=== PATIENT | male | born 1995 | race African-American/Black ===

== ENCOUNTER 2019-07-18 18:05 | Emergency (ER) | payer SELFPAY ==
[~2019-07-18] VITALS: Ht 177.8 cm; Wt 86.2 kg
[~2019-07-18 18:05] MED LIST: LOMOTIL 0.025 M1 TA1 PO; MOTRIN800 MG PO; VALTREX1 GM PO; ZOFRAN ODT4 MG SL
[2019-07-18 18:07] VITALS: BP 121/77
[2019-07-18] MEDS ORDERED: AMOXICILLIN500 M2 PO (18:21)
== END 2019-07-18 18:48 | disposition home or self-care (01) ==
LOC: ED 18:05
DX: J02.0 Streptococcal pharyngitis (principal)

== ENCOUNTER 2019-07-30 15:31 | Emergency (ER) | payer SELFPAY ==
[~2019-07-30] VITALS: Ht 175.2 cm; Wt 88.5 kg
[~2019-07-30 15:31] MED LIST changes: +AMOXICILLIN500 M2 PO
[2019-07-30 15:34] VITALS: BP 120/71
[2019-07-30 16:43] LABS: HEMOGLOBIN 14.1 g/dl (14.0-18.0); MEAN CELL VOLUME 87.2 fl (80.0-94.0); MEAN CORPUSCULAR HGB CONC 34.4 g/dl (33.0-37.0); PLATELET COUNT AUTOMATED 215 10*3/uL (130-400); RED CELL DISTRI WIDTH 11.8 % (0-14.5); WHITE BLOOD COUNT 19.7 10*3/uL (4.8-10.8)
[2019-07-30 16:49] LABS: BILIRUBIN NEGATIVE (NEGATIVE); BLOOD NEGATIVE (NEGATIVE); CLARITY CLEAR (CLEAR); COLOR YELLOW (YELLOW); GLUCOSE NEGATIVE (NEGATIVE); KETONE NEGATIVE (NEGATIVE); LEUKO ESTERASE NEGATIVE (NEGATIVE); NITRITE NEGATIVE (NEGATIVE); SPECIFIC GRAVITY 1.015 (1.005-1.030); UROBILINOGEN 0.2 E.U./dl (0.2-1.0)
[2019-07-30 17:00] LABS: ALBUMIN 4.1 gm/dl (3.1-4.5); ALKALINE PHOSPHATASE 62 U/L (45-117); BUN 10 mg/dl (7-24); CHLORIDE 104 mmol/L (98-107); CREATININE 1.03 mg/dL (0.70-1.30); POTASSIUM 3.6 mmol/L (3.5-5.1); SGOT/AST 10 IU/L (3-35); SGPT/ALT 25 U/L (12-78); SODIUM 138 mmol/L (136-145); TOTAL PROTEIN 7.4 gm/dL (6.4-8.2)
[2019-07-30 17:01] LABS: PLATELET SUFFICIENCY NORMAL (NORMAL); TOTAL CELLS COUNTED 100 #CELLS
[2019-07-30 17:14] LABS: BACTERIA TRACE; WBC 0-2 wbc/hpf (0-5)
[2019-07-30] MEDS ORDERED: AUGMENTIN 875-875 MG PO (19:00)
== END 2019-07-30 18:20 | disposition home or self-care (01) ==
LOC: ED 15:31
PROVIDERS: Nurse Practitioner Family
DX: J02.9 Acute pharyngitis, unspecified (principal); M54.9 Dorsalgia, unspecified; Z79.2 Long term (current) use of antibiotics

== ENCOUNTER 2024-03-10 19:41 | Emergency (ER) | payer OTHER ==
[~2024-03-10] VITALS: Ht 177.8 cm; Wt 99.8 kg
[~2024-03-10 19:41] MED LIST changes: +AUGMENTIN 875-875 MG PO
[2024-03-10 20:00] VITALS: BP 134/89
[2024-03-10 20:22] LABS: BASO % 0.5 % (0.0-1.0); EOS # 0.3 10*3/uL (0.0-0.4); EOS % 3.3 % (1.0-4.0); LYMPH # 2.4 10*3/uL (1.3-4.4); LYMPH % 28.5 % (27.0-41.0); MEAN CELL VOLUME 87.8 fl (80.0-94.0); MEAN CORPUSCULAR HGB CONC 34.2 g/dl (33.0-37.0); MEAN PLATELET VOLUME 10.3 fl (9.6-12.3); MONO # 0.6 10*3/uL (0.1-1.0); MONO % 7.2 % (3.0-9.0); NEUT % 60.1 % (47.0-73.0); PLATELET COUNT AUTOMATED 188 10*3/uL (130-400); RED CELL DISTRI WIDTH 12.7 % (0-14.5); WHITE BLOOD COUNT 8.2 10*3/uL (4.8-10.8)
[2024-03-10 20:41] LABS: BUN 13 mg/dl (9-23); CHLORIDE 106 mmol/L (98-107); POTASSIUM 3.6 mmol/L (3.4-5.1)
[2024-03-10] MEDS ORDERED: PREDNISONE20 M1 PO (20:44)
[2024-03-10] MEDS ORDERED: methylPREDNISolone sod succ 125 MG VIAL IM ONE (20:45)
== END 2024-03-10 20:55 | disposition home or self-care (01) ==
LOC: ED 19:41
PROVIDERS: Nurse Practitioner Family
DX: S29.011A Strain of muscle and tendon of front wall of thorax, initial encounter (principal); X50.0XXA Overexertion from strenuous movement or load, initial encounter; Y93.89 Activity, other specified; Y92.89 Other specified places as the place of occurrence of the external cause; Y99.0 Civilian activity done for income or pay

== ENCOUNTER 2025-02-05 16:48 | Emergency (ER) | payer OTHER ==
[~2025-02-05] VITALS: Ht 175.2 cm; Wt 99.8 kg
[~2025-02-05 16:48] MED LIST changes: +PREDNISONE20 M1 PO
[2025-02-05 17:23] VITALS: BP 113/76
[2025-02-05] MEDS ORDERED: MELOXICAM15 MG PO (19:08)
== END 2025-02-05 19:11 | disposition home or self-care (01) ==
LOC: ED 16:48
DX: S93.402A Sprain of unspecified ligament of left ankle, initial encounter (principal); Z79.899 Other long term (current) drug therapy; X58.XXXA Exposure to other specified factors, initial encounter; Y93.67 Activity, basketball; Y92.89 Other specified places as the place of occurrence of the external cause; Y99.8 Other external cause status